=== PATIENT | female | born 1940 | race Caucasian/White ===

== ENCOUNTER 2017-06-11 09:21 | Outpatient (CLI) | payer MEDICARE, MEDICAID ==
--- NOTE | 2017-06-11 10:28 | RAD ---
CHEST TWO VIEWS: HISTORY: Syncope. COMPARISON: 05/29/2009 FINDINGS: Two views of the chest show a normal sized cardiomediastinal silhouette with atherosclerotic calcific ations in the aorta. There is no evidence of consolidation, mass, or pleural effusion. The patient is status post left shoulder arthroplasty. IMPRESSION: No evidence of acute cardiopulmonary disease. POS: [facility]
== END 2017-06-11 09:22 | disposition home or self-care (01) ==
LOC: MADRAD 09:21
PROVIDERS: ATTEND Physician Assistant
DX: R55 Syncope and collapse (principal)
CPT/HCPCS: 71046

== ENCOUNTER 2018-06-30 10:30 | Outpatient (CLI) | payer MEDICARE, MEDICAID ==
--- NOTE | 2018-06-30 11:28 | RAD ---
PA AND LATERAL VIEWS CHEST: Date: 06/30/18 HISTORY: Chest wall mass. FINDINGS: Comparison made with exam of 06/11/17. The heart size is normal. The lungs are expanded without focal areas of consolidation, pneumothoraces , or pleural effusions. The aorta is tortuous. Left-sided shoulder arthroplasty is again seen. There are degenerative changes in the spine. IMPRESSION: Stable exam. No radiographic evidence of acute cardiopulmonary process. POS: [facility]
== END 2018-06-30 10:31 | disposition home or self-care (01) ==
LOC: MADRAD 10:30
PROVIDERS: ATTEND Physician Assistant
DX: R22.2 Localized swelling, mass and lump, trunk (principal)
CPT/HCPCS: 71046

== ENCOUNTER 2020-06-07 11:35 | Emergency (ER) | payer MEDICARE, MEDICAID | END 2020-06-07 13:15 | disposition home or self-care (01) | LOC: MADERS 11:35 | DX: S80.01XA Contusion of right knee, initial encounter (principal); E66.9 Obesity, unspecified; J44.9 Chronic obstructive pulmonary disease, unspecified; E11.9 Type 2 diabetes mellitus without complications; I10 Essential (primary) hypertension; F17.200 Nicotine dependence, unspecified, uncomplicated; W18.30XA Fall on same level, unspecified, initial encounter ==

== ENCOUNTER 2023-06-29 12:49 | Emergency (ER) | payer MEDICARE, MEDICAID ==
[2023-06-29] MEDS ORDERED: Sodium Chloride 0.9% 1,000 ML ONE (13:27)
[2023-06-29] MEDS ORDERED: Sodium Chloride 0.9% 250 ML 0 ML ONE (13:27)
[2023-06-29] MEDS ORDERED: Ipratropium/Albuterol 3 ML NEB ONE (13:32)
[2023-06-29 13:44] LABS: INR-International Normal Ratio 0.9; Prothrombin Time 12.2 sec (12.0-14.7)
[2023-06-29 13:45] LABS: PTT 29.5 sec (22.9-36.1)
[2023-06-29 13:54] LABS: ALT (SGPT) 20 U/L (8-55); AST (SGOT) 35 U/L (5-34); Albumin 3.7 g/dL (3.4-4.8); Alkaline Phosphatase 56 U/L (40-110); Anion Gap 33 mmol/L (10-20); Anisocytosis SLIGHT = 6-15 cells (100X) (0-5/hpf); BUN (Urea Nitrogen) 109 mg/dL (9.8-20.1); Band 16 % (5-11); Bilirubin, Total 1.2 mg/dL (0.2-1.2); Calc. Creatinine Clearance 0 mL/min (70-130); Calcium 7.1 mg/dL (7.8-10.44); Chloride 97 mmol/L (98-107); Estimated GFR 3; Globulin 3.1 g/dL (2.4-3.5); Glucose 84 mg/dL (83-110); Hypochromia SLIGHT = 6-15 cells (100X) (0-5/hpf); Lymphocytes 10 % (21-51); MDiff Complete? YES; Monocytes 4 % (0-10); Neutrophil 70 % (42-75); Platelet Adequacy Comment Appears Adequate; Potassium 4.6 mmol/L (3.5-5.1); Protein, Total 6.8 g/dL (5.8-8.1); Sodium 134 mmol/L (136-145)
[2023-06-29 13:55] LABS: Hemoglobin 10.4 g/dL (12.0-16.0); Mean Corpuscular HGB CONC 32.4 g/dL (32.0-36.0); Mean Corpuscular Hemoglobin 31.2 pg (27.0-31.0); Mean Corpuscular Volume 96.3 fl (78.0-98.0); Platelet Count 230 10x3/uL (130-400); RBC Distribution Width 13.5 % (11.5-14.5); Red Blood Cell (RBC) Count 3.32 mill/uL (4.20-5.40); White Blood Cell (WBC) Count 29.2 10x3/uL (4.8-10.8)
[2023-06-29 13:56] LABS: Troponin I 0.089 ng/mL (< 0.028)
[2023-06-29] MEDS ORDERED: Sodium Chloride 0.9% 0 ML ONE (13:59)
[2023-06-29] MEDS ORDERED: cefTRIAXone (ROCEPHIN) 500 MG VIAL ONE (13:59)
[2023-06-29] MEDS ORDERED: Vancomycin HCl 500 MG VIAL ONE (14:05)
[2023-06-29] MEDS ORDERED: Sodium Chloride 0.9% 100 ML ONE (14:05)
[2023-06-29 14:13] LABS: Base Excess-Venous -18.7 mmol/L (-2.0 to 3.0); Bicarbonate (HCO3v) 8.4 mmol/L (22.0-28.0); CO2 Tension (PvCO2) 23.9 mmHg (42.0-51.0); Calcium, Ionized 0.71 mmol/L (1.15-1.33); Chloride 110 mmol/L (98-107); Hemoglobin - Calc 9.5 g/dL (12.0-16.0); Potassium 3.9 mmol/L (3.5-5.1); Sodium 127 mmol/L (138-145); T. Carbon Dioxide 9.2 mmol/L (22.0-28.0); vO2 Saturation-calc 93.7 % (60.0-85.0)
[2023-06-29 14:17] LABS: Carbon Dioxide 9 mmol/L (23-31); Critical Call Chemistry NUR.BP2@1416
== END 2023-06-29 16:22 | disposition home or self-care (01) ==
LOC: MADERS 12:49
DX: I21.4 Non-ST elevation (NSTEMI) myocardial infarction (principal); N17.9 Acute kidney failure, unspecified; E87.20 Acidosis, unspecified; E11.9 Type 2 diabetes mellitus without complications; I10 Essential (primary) hypertension; J44.9 Chronic obstructive pulmonary disease, unspecified; F17.210 Nicotine dependence, cigarettes, uncomplicated; Z79.84 Long term (current) use of oral hypoglycemic drugs; Z79.899 Other long term (current) drug therapy
CPT/HCPCS: 70450; 71045; 74018; 80053; 82330; 82803; 83605; 83880; 84484; 85025; 85610; 85730; 93005; 96360; J0696; J3370; J3490; J7050; J7620